=== PATIENT | male | born 2000 | race Caucasian/White ===

== ENCOUNTER → 2021-02-19 | Outpatient (CLI) | payer BC, OTHER ==
--- NOTE | 2021-02-22 10:07 | PATH ---
[facility] [place] [address] PATHOLOGY RPT PROCEDURE Name: DELMAR OVIEDO Room #: REG DONELL Evangelina.#: [id number] Admission: 02/19/21 Date of : 89 Discharge: Report #: [id number] Path Case #: [id number] [facility] Accession Number: [id number] . 01 Material submitted: . PART A: duodenum - DUODENAL BIOPSY R/O CELIAC PART B: gastrointestinal site - RANDOM GASTRIC R/O H. PYLORI PART C: esophagus - ESOPHAGEAL ULCER R/O VIRAL ESOPHAGITIS PART D: ileum - TERMINAL ILIAC BIOPSIES PART E: colon - RANDOM RIGHT COLON. Modifiers: right PART F: colon - RANDOM LEFT COLON BIOPSIES. Modifiers: left . 01 Clinical history: . ESOPHAGOGASTRODUODENOSCOPY, COLONOSCOPY ESOPHAGITIS ESOPHAGEAL ULCER, COLITIS FOR D- R/O INFECTIOUS ENTERITIS VS. INFLAMMATORY BOWEL DISEASE FOR E- R/O INFECTIOUS COLITIS VS. INFLAMMATORY BOWEL DISEASE . 02 Diagnosis: A. Duodenum, endoscopic biopsy: - Small bowel mucosa with preserved villous morphology. - Negative for celiac disease, peptic duodenitis or giardiasis. . B. Random gastric, biopsy: - Gastric antral mucosa with mild chronic inactive gastritis. - No H. pylori-like organisms are identified on immunohistochemical stain. - Negative for malignancy. . C. Esophagus ulcer, endoscopic biopsy: - Squamous mucosa with acute inflammation, reactive-type changes associated with healing esophageal ulcer. - No viral cytopathic effect or malignancy identified. . D. Terminal ileum, biopsies: - Small bowel mucosa with extensive granulation tissue, superficial ulceration and focal cryptitis. See comment. . E. Random right colon, endoscopic biopsy: - Colonic mucosa with superficial ulceration, granulation tissue and mild cryptitis. See comment. . F. Random left colon, biopsies: - Colonic mucosa with prominent lymphoid aggregate, otherwise no significant histopathologic abnormality. . (ANK:mmmarilyn; 02/21/2021) [facility] 02/21/2021 101[address] [facility] [address] [place] [address] PATHOLOGY RPT PROCEDURE Name: FELYDELMAR Room #: REG [facility]Kindred HospitalLily.#: [id number] Admission: 02/19/21 Date of : 89 Discharge: Report #: [id number] Path Case #: [id number] . 02 Comment: The terminal ileum biopsies and the random right colon biopsies show extensive ulceration, granulation tissue, mild cryptitis. Crypt architectural distortion is not identified. Differential includes infectious etiology or an early inflammatory bowel disease. Recommend clinical and colonoscopic correlation. . (ANK:mml; 02/21/2021) . 02 Electronically signed: . Cecille Fonseca MD, Pathologist NPI- [id number] . 01 Gross description: . A. The specimen is received in formalin, labeled "Delmar Oviedo, duodenal biopsy". Received are 4 segments of pale sagastume tissue ranging in size from 0.3 to 0.4 cm in maximum dimensions. The specimen is submitted entirely in cassette A1. . B. The specimen is received in formalin, labeled "Delmar Oviedo, random gastric rule out H. pylori". Received are multiple segments of pale sagastume tissue ranging in size from 0.2 cm to 0.5 cm in maximum dimensions. The specimen is submitted entirely in cassette B1. . C. The specimen is received in formalin, labeled "Delmar Oviedo, esophageal ulcer rule out esophagitis". Received are multiple segments of pale sagastume tissue ranging in size from 0.2 cm to 0.6 cm in maximum dimensions. The specimen is submitted entirely in cassette C1. . D. The specimen is received in formalin, labeled "Delmar Oviedo, terminal iliac biopsies". Received are multiple segments of pale sagastume tissue ranging in size from 0.2 cm to 0.4 cm in maximum dimensions. The specimen is submitted entirely in cassette D1. . E. The specimen is received in formalin, labeled "Delmar Oviedo, random right colon". Received are 5 segments of pale sagastume tissue ranging in size from 0.3 to 0.4 cm in maximum dimensions. The specimen is submitted entirely in cassette E1. . F. The specimen is received in formalin, labeled "Delmar Oviedo, random left colon biopsies". Received are 5 segments of pale sagastume tissue ranging in size from 0.3 to 0.6 cm in maximum dimensions. The specimen is submitted entirely in cassette F1.([facility]; 02/19/2021) [facility] 02/19/2021 1831 Local . 02 Pathologist provided ICD-10: [address] [address] PATHOLOGY RPT PROCEDURE Name: DELMAR OVIEDO Room #: REG DONELL Hutchinson.#: [id number] Admission: 02/19/21 Date of : 89 Discharge: Report #: [id number] Path Case #: [id number] K29.50, K20.90, K52.9, K63.3 . 02 CPT . 270656, [id number], [id number], [id number], [id number], [id number], [id number] Specimen Comment: A courtesy copy of this report has been sent to [phone] Specimen Comment: Report sent to Specimen Comment: A duplicate report has been generated due to demographic updates. Performed at: [address] [facility] [address], [place], [place] [id number] MD Rodolfo Cosme MD Phone: [phone] Performed at: [address] [facility] [address] [id number] MD Cecille Fonseca MD Phone: [phone]
== END | disposition home or self-care (01) ==
LOC: GI 07:32
PROVIDERS: ATTEND Internal Medicine Gastroenterology
DX: R10.84 Generalized abdominal pain (principal); R10.13 Epigastric pain; K50.80 Crohn's disease of both small and large intestine without complications; K63.3 Ulcer of intestine; K52.9 Noninfective gastroenteritis and colitis, unspecified; K22.10 Ulcer of esophagus without bleeding; R63.4 Abnormal weight loss; K29.50 Unspecified chronic gastritis without bleeding; K62.89 Other specified diseases of anus and rectum; Z98.890 Other specified postprocedural states; Z79.899 Other long term (current) drug therapy
CPT/HCPCS: 62110; 62900